=== PATIENT | female | born 1985 | race Two or more races ===

== ENCOUNTER 2017-06-16 01:20 | Emergency (ER) | payer MEDICAID, OTHER ==
[~2017-06-16] VITALS: Ht 162.6 cm; Wt 65.3 kg
[2017-06-16 02:04] LABS: Basophils # (auto) 0.1 uL; Eosinophils # (auto) 0.1 uL; Eosinophils % (auto) 0.9 % (0.0-7.0); Hematocrit 37.9 % (36.0-46.0); Hemoglobin 12.8 g/dL (12.2-16.2); Lymphocytes # (auto) 1.9 uL; Lymphocytes % (auto) 20.9 % (10.0-50.0); Mean Corpuscular Hemoglobin 30.7 pg (28.0-32.0); Mean Corpuscular Hgb Conc. 33.9 g/dL (32.0-36.0); Mean Corpuscular Volume 90.7 fL (80.0-100.0); Monocytes # (auto) 0.6 uL; Monocytes % (auto) 7.2 % (0.0-12.0); Neutrophils # (auto) 6.2 uL; Platelet Count (auto) 168 10^3/uL (140-450); Red Blood Cells 4.18 10^6/uL (4.0-5.20); Red Cell Distribution Width 13.2 % (11.8-14.3); White Blood Cell 8.9 10^3/uL (4.4-10.8)
[2017-06-16 02:10] LABS: Urine Amorphous Crystal FEW /hpf (None Seen); Urine Bacteria FEW /hpf (None Seen); Urine Blood Negative /uL (Negative); Urine Specific Gravity 1.016 (1.001-1.035); Urine WBC 1 /hpf (0 - 5)
[2017-06-16 02:45] LABS: Albumin 3.4 g/dL (3.4-5.0); Calcium 9.1 mg/dL (8.5-10.1); Potassium 4.3 mmol/L (3.5-5.1)
[2017-06-16 02:48] LABS: BUN/Creatinine Ratio 15.2
[2017-06-16 02:51] LABS: Bilirubin, Total 0.3 mg/dL (0.2-1.0); Total Protein 7.4 g/dL (6.4-8.2)
[2017-06-16 06:43] VITALS: BP 125/80
[2017-06-16] MEDS ORDERED: ACETAMINOPHEN 325 MG TAB PO ONE (07:00)
[2017-06-16] MEDS ORDERED: ONDANSETRON ODT 4 MG TAB PO ONE (07:30)
== END 2017-06-16 08:28 | disposition home or self-care (01) ==
LOC: ER 01:20
DX: O26.891 Other specified pregnancy related conditions, first trimester (principal); O21.9 Vomiting of pregnancy, unspecified; R10.31 Right lower quadrant pain; Z3A.11 11 weeks gestation of pregnancy
CPT/HCPCS: 36415; 76801; 80053; 81001; 84702; 85025; 99285; Q0162

== ENCOUNTER → 2017-06-26 | Outpatient (CLI) | payer MEDICAID ==
[2017-06-26 11:54] LABS: Basophils # (auto) 0.1 uL; Basophils % (auto) 0.8 % (0.0-2.0); Eosinophils # (auto) 0 uL; Eosinophils % (auto) 0.6 % (0.0-7.0); Hematocrit 39.7 % (36.0-46.0); Hemoglobin 13.3 g/dL (12.2-16.2); Lymphocytes # (auto) 1.4 uL; Lymphocytes % (auto) 19.8 % (10.0-50.0); Mean Corpuscular Hemoglobin 30.7 pg (28.0-32.0); Mean Corpuscular Hgb Conc. 33.5 g/dL (32.0-36.0); Mean Corpuscular Volume 91.7 fL (80.0-100.0); Monocytes # (auto) 0.4 uL; Neutrophils % (auto) 72.8 % (37.0-80.0); Nucleated Red Blood Cells % 0.1 %; Platelet Count (auto) 176 10^3/uL (140-450); Red Blood Cells 4.33 10^6/uL (4.0-5.20); Red Cell Distribution Width 13.2 % (11.8-14.3); White Blood Cell 6.9 10^3/uL (4.4-10.8)
[2017-06-26 13:04] LABS: Alcohol, Urine < 3.0 mg/dL (0-5); Amphetamine Screen, Urine NEGATIVE (NEGATIVE); Barbiturate Scree,Urine NEGATIVE (NEGATIVE); Benzodiazephine Screen, Urine NEGATIVE (NEGATIVE); Cannabinoid Screen, Urine NEGATIVE (NEGATIVE); Cocaine Screen, Urine NEGATIVE (NEGATIVE); Opiate Scree,Urine NEGATIVE (NEGATIVE); Phencyclidine Screen, Urine NEGATIVE (NEGATIVE)
[2017-06-27 04:08] LABS: RPR Non Reactive (Non Reactive)
== END | disposition home or self-care (01) ==
LOC: LAB 11:22
PROVIDERS: ATTEND Specialist
DX: Z34.82 Encounter for supervision of other normal pregnancy, second trimester (principal); Z3A.14 14 weeks gestation of pregnancy
CPT/HCPCS: 36415; 80307; 81220; 83036; 85025; 86592; 86703; 86762; 86850; 86900; 86901; 87086; 87340

== ENCOUNTER → 2017-09-29 | Outpatient (CLI) | payer MEDICAID ==
[2017-09-29 10:53] LABS: Basophils # (auto) 0.1 uL; Basophils % (auto) 0.8 % (0.0-2.0); Eosinophils # (auto) 0.1 uL; Eosinophils % (auto) 0.9 % (0.0-7.0); Hematocrit 34.8 % (36.0-46.0); Lymphocytes # (auto) 1.6 uL; Lymphocytes % (auto) 20.6 % (10.0-50.0); Mean Corpuscular Hemoglobin 31.8 pg (28.0-32.0); Mean Corpuscular Hgb Conc. 34.5 g/dL (32.0-36.0); Mean Corpuscular Volume 92.2 fL (80.0-100.0); Monocytes # (auto) 0.6 uL; Monocytes % (auto) 8.1 % (0.0-12.0); Neutrophils # (auto) 5.3 uL; Neutrophils % (auto) 69.6 % (37.0-80.0); Red Blood Cells 3.78 10^6/uL (4.0-5.20); Red Cell Distribution Width 13.1 % (11.8-14.3); White Blood Cell 7.6 10^3/uL (4.4-10.8)
[2017-09-29 10:57] LABS: Platelet Count (auto) 133 10^3/uL (140-450)
== END | disposition home or self-care (01) ==
LOC: LAB 10:36
PROVIDERS: ATTEND Specialist
DX: O99.810 Abnormal glucose complicating pregnancy (principal); Z3A.22 22 weeks gestation of pregnancy
CPT/HCPCS: 36415; 82951; 85025

== ENCOUNTER → 2017-12-06 | Outpatient (CLI) | payer MEDICAID ==
[~2017-12-06] MED LIST: PREN-96 PO
[2017-12-06 10:54] LABS: Basophils # (auto) 0 uL; Basophils % (auto) 0.6 % (0.0-2.0); Eosinophils # (auto) 0.1 uL; Eosinophils % (auto) 0.9 % (0.0-7.0); Hematocrit 37.5 % (36.0-46.0); Hemoglobin 12.5 g/dL (12.2-16.2); Lymphocytes # (auto) 1.2 uL; Mean Corpuscular Hemoglobin 30.1 pg (28.0-32.0); Mean Corpuscular Hgb Conc. 33.2 g/dL (32.0-36.0); Mean Corpuscular Volume 90.7 fL (80.0-100.0); Monocytes # (auto) 0.5 uL; Monocytes % (auto) 7.9 % (0.0-12.0); Neutrophils # (auto) 4.5 uL; Neutrophils % (auto) 71.6 % (37.0-80.0); Platelet Count (auto) 141 10^3/uL (140-450); Red Blood Cells 4.14 10^6/uL (4.0-5.20); Red Cell Distribution Width 13.9 % (11.8-14.3); White Blood Cell 6.3 10^3/uL (4.4-10.8)
== END | disposition home or self-care (01) ==
LOC: LAB 10:18
PROVIDERS: ATTEND Specialist
DX: Z11.3 Encounter for screening for infections with a predominantly sexual mode of transmission (principal)
CPT/HCPCS: 36415; 85025

== ENCOUNTER 2017-12-07 08:10 | Observation (INO) | payer MEDICAID ==
[2017-12-07] MEDS ORDERED: PREN-96 PO (09:20)
== END 2017-12-07 09:15 | disposition home or self-care (01) | DRG 566 ==
LOC: LDRP 08:10
PROVIDERS: ADMIT Specialist; ATTEND Specialist
DX: O62.9 Abnormality of forces of labor, unspecified (principal); O60.03 Preterm labor without delivery, third trimester; Z87.891 Personal history of nicotine dependence; Z3A.35 35 weeks gestation of pregnancy
CPT/HCPCS: 59025; 81002; G0378

== ENCOUNTER 2017-12-11 09:40 | Observation (INO) | payer MEDICAID ==
[2017-12-11] MEDS: TERBUTALINE SULFATE 1 MG/ML 1ML VIAL SC SCH ×2 (11:13→11:44)
== END 2017-12-11 12:20 | disposition home or self-care (01) | DRG 563 ==
LOC: LDRP 09:40
PROVIDERS: ADMIT Obstetrics & Gynecology; ATTEND Obstetrics & Gynecology
DX: O60.03 Preterm labor without delivery, third trimester (principal); Z3A.36 36 weeks gestation of pregnancy; Z87.891 Personal history of nicotine dependence
CPT/HCPCS: 59025; 81002; 96372; G0378; J3105

== ENCOUNTER 2017-12-18 09:35 | Observation (INO) | payer MEDICAID | END 2017-12-18 10:50 | disposition home or self-care (01) | DRG 563 | LOC: LDRP 09:35 | PROVIDERS: ADMIT Specialist; ATTEND Specialist | DX: O60.03 Preterm labor without delivery, third trimester (principal); Z3A.37 37 weeks gestation of pregnancy | CPT/HCPCS: 59025; 81002; G0378 ==

== ENCOUNTER 2017-12-25 09:25 | Inpatient (IN) | payer MEDICAID ==
[2017-12-25] VITALS (9 sets, daily range): BP systolic 100–115; BP diastolic 41–71
[~2017-12-25] VITALS: Ht 166 cm; Wt 75.3 kg
[2017-12-25] MEDS: TERBUTALINE SULFATE 1 MG/ML 1ML VIAL SC SCH (10:35)
[2017-12-25 10:53] LABS: Basophils # (auto) 0 uL; Basophils % (auto) 0.4 % (0.0-2.0); Eosinophils # (auto) 0 uL; Eosinophils % (auto) 0.5 % (0.0-7.0); Hematocrit 38.9 % (36.0-46.0); Hemoglobin 12.8 g/dL (12.2-16.2); Lymphocytes # (auto) 1.2 uL; Lymphocytes % (auto) 15.4 % (10.0-50.0); Mean Corpuscular Hemoglobin 29.8 pg (28.0-32.0); Mean Corpuscular Hgb Conc. 32.8 g/dL (32.0-36.0); Monocytes # (auto) 0.5 uL; Neutrophils # (auto) 6.2 uL; Neutrophils % (auto) 77.7 % (37.0-80.0); Platelet Count (auto) 130 10^3/uL (140-450); Red Blood Cells 4.28 10^6/uL (4.0-5.20); Red Cell Distribution Width 14.7 % (11.8-14.3)
[2017-12-25 11:05] LABS: Urine Bacteria FEW /hpf (None Seen); Urine Blood Negative /uL (Negative); Urine Specific Gravity 1.015 (1.001-1.035); Urine WBC 1 /hpf (0 - 5)
[2017-12-25 11:15] LABS: INR 0.87 (0.9-1.15); Partial Thromboplastin Time 27.9 sec (23.78-33.04); Prothrombin Time 9.4 sec (9.27-12.13)
[2017-12-25 11:18] LABS: Albumin 2.7 g/dL (3.4-5.0); BUN/Creatinine Ratio 17.6; Bilirubin, Total 0.5 mg/dL (0.2-1.0); Calcium 8.1 mg/dL (8.5-10.1); Potassium 3.8 mmol/L (3.5-5.1); Total Protein 7.2 g/dL (6.4-8.2)
[2017-12-25] MEDS ORDERED: TETRACAINE 1% INJ 2 ML VIAL IJ ONE (12:12)
[2017-12-25] MEDS ORDERED: MORPHINE SULF(PF) 0.5MG/ML 10ML VIAL ONE (12:17)
[2017-12-25] MEDS ORDERED: OXYTOCIN 10 UNIT/ML 10ML VIAL ONE (12:28)
[2017-12-25] MEDS ORDERED: ceFAZolin 1GM VL ONE (12:30)
[2017-12-25] MEDS ORDERED: MIDAZOLAM HCL 1MG/1ML-2 ML VIAL ONE (13:01)
[2017-12-25] MEDS ORDERED: NALOXONE HCL 0.4 MG/ML VIAL IV PRN (13:15)
[2017-12-25] MEDS ORDERED: METOCLOPRAMIDE HCL 5MG/ml INJ 2ml VIAL IV ONE (13:15)
[2017-12-25] MEDS ORDERED: ONDANSETRON HCL 4 MG/2 ML VIAL IV ONE (13:15)
[2017-12-25] MEDS ORDERED: KETOROLAC TROMETH 30 MG/ML 1ML VIAL IV PRN (13:15)
[2017-12-25] MEDS ORDERED: ONDANSETRON HCL 4 MG/2 ML VIAL IV PRN ×2 (13:15→13:45)
[2017-12-25] MEDS ORDERED: diphenhdrAMINE HCL 50 MG/1 ML VL IV PRN (13:15)
[2017-12-25] MEDS ORDERED: HYDROmorphone HCL 2 MG/ML VL IV PRN (13:15)
[2017-12-25] MEDS ORDERED: MORPHINE SULFATE 4 MG/ML SYR/VIAL IV PRN (13:45)
[2017-12-25] MEDS: LACTATED RINGER'S 1,000 ML IV SCH ×2 (15:53→23:43)
[2017-12-25] MEDS: KETOROLAC TROMETH 30 MG/ML 1ML VIAL IV SCH ×2 (18:23→23:43)
[2017-12-25] MEDS: ceFAZolin 1GM/50ML 50 ML IV SCH (19:37)
[2017-12-26] VITALS (8 sets, daily range): BP systolic 93–111; BP diastolic 41–62
[2017-12-26] MEDS: TERBUTALINE SULFATE 1 MG/ML 1ML VIAL SC SCH (02:28)
[2017-12-26] MEDS: ceFAZolin 1GM/50ML 50 ML IV SCH ×2 (03:35→11:42)
[2017-12-26] MEDS ORDERED: BISACODYL 10 MG RECT SUPP PR PRN (05:15)
[2017-12-26] MEDS: KETOROLAC TROMETH 30 MG/ML 1ML VIAL IV SCH (05:27)
[2017-12-26] MEDS: SIMETHICONE 80 MG CHEWABLE TABLET PO SCH ×4 (05:31→21:39)
[2017-12-26 06:06] LABS: RPR Non Reactive (Non Reactive)
[2017-12-26 07:16] LABS: Basophils # (auto) 0 uL; Basophils % (auto) 0.5 % (0.0-2.0); Eosinophils # (auto) 0.1 uL; Eosinophils % (auto) 0.9 % (0.0-7.0); Hemoglobin 11.5 g/dL (12.2-16.2); Lymphocytes % (auto) 12.3 % (10.0-50.0); Mean Corpuscular Hemoglobin 30.9 pg (28.0-32.0); Mean Corpuscular Volume 90.9 fL (80.0-100.0); Monocytes # (auto) 0.5 uL; Monocytes % (auto) 6.3 % (0.0-12.0); Neutrophils # (auto) 6.2 uL; Nucleated Red Blood Cells % 0.1 %; Platelet Count (auto) 116 10^3/uL (140-450); Red Blood Cells 3.74 10^6/uL (4.0-5.20); Red Cell Distribution Width 14.7 % (11.8-14.3); White Blood Cell 7.8 10^3/uL (4.4-10.8)
[2017-12-26] MEDS ORDERED: HYDROcodone-ACET 5/325MG TAB PO PRN (09:30)
[2017-12-26] MEDS: HYDROcodone-ACET 5/325MG TAB PO PRN ×2 (09:40→21:47)
[2017-12-26] MEDS: DOCUSATE SOD 100 MG CAP PO SCH ×2 (09:40→21:39)
[2017-12-26] MEDS: IBUPROFEN 800 MG TAB PO PRN ×2 (14:51→21:05)
[2017-12-27 03:00] VITALS: BP 108/54
[2017-12-27] MEDS: HYDROcodone-ACET 5/325MG TAB PO PRN ×3 (03:58→22:45)
[2017-12-27] MEDS: IBUPROFEN 800 MG TAB PO PRN ×2 (05:00→18:03)
[2017-12-27] MEDS: SIMETHICONE 80 MG CHEWABLE TABLET PO SCH ×3 (06:38→22:45)
[2017-12-27 06:40] VITALS: BP 86/60
[2017-12-27] MEDS: DOCUSATE SOD 100 MG CAP PO SCH (10:00)
[2017-12-27 11:00] VITALS: BP 101/58
[2017-12-27 14:40] VITALS: BP 93/50
[2017-12-27 19:00] VITALS: BP 113/68
[2017-12-27 22:52] VITALS: BP 116/54
[2017-12-28 02:57] VITALS: BP 95/55
[2017-12-28] MEDS: IBUPROFEN 800 MG TAB PO PRN (06:00)
[2017-12-28] MEDS: SIMETHICONE 80 MG CHEWABLE TABLET PO SCH (06:01)
[2017-12-28 06:40] VITALS: BP 105/57
[2017-12-28] MEDS: DOCUSATE SOD 100 MG CAP PO SCH (09:48)
== END 2017-12-28 10:30 | disposition home or self-care (01) | DRG 540 ==
LOC: OBSVTOIN 09:25 → LDRP 09:25
PROVIDERS: ADMIT Obstetrics & Gynecology; ATTEND Obstetrics & Gynecology
PROC: 0UL70CZ Occlusion of Bilateral Fallopian Tubes with Extraluminal Device, Open Approach (ICD-10-PCS; 2017-12-25)
PROC: 10D00Z1 Extraction of Products of Conception, Low, Open Approach (ICD-10-PCS; principal; 2017-12-25 12:07)
DX: O34.211 Maternal care for low transverse scar from previous cesarean delivery (principal); O69.81X0 Labor and delivery complicated by cord around neck, without compression, not applicable or unspecified; O77.0 Labor and delivery complicated by meconium in amniotic fluid; Z37.0 Single live birth; Z30.2 Encounter for sterilization; Z3A.38 38 weeks gestation of pregnancy
CPT/HCPCS: 36415; 51702; 59025; 80053; 81001; 81002; 85025; 85610; 85730; 86592; 86850; 86900; 86901; 96365; 96366; 96372; 96374; 96375; J0690; J1885; J2250; J2405; J2590

== ENCOUNTER 2023-08-03 09:55 | Emergency (ER) | payer MEDICAID ==
[~2023-08-03] VITALS: Ht 167.6 cm; Wt 78.6 kg
[2023-08-03 11:04] VITALS: BP 130/90; PULSE 98; RESP 16; TEMP 98.9; O2SAT 98
[2023-08-03] MEDS ORDERED: AMOX875T3 PO (11:20)
[2023-08-03] MEDS ORDERED: IBUP-1456 PO (11:20)
== END 2023-08-03 11:24 | disposition home or self-care (01) ==
LOC: ER 09:55
DX: J03.90 Acute tonsillitis, unspecified (principal); H66.91 Otitis media, unspecified, right ear

== ENCOUNTER 2023-08-11 08:23 | Emergency (ER) | payer MEDICAID ==
[~2023-08-11] VITALS: Ht 165.1 cm; Wt 77.9 kg
[~2023-08-11 08:23] MED LIST changes: +AMOX875T3 PO; +IBUP-1456 PO
[2023-08-11 09:24] VITALS: BP 116/64; PULSE 73; RESP 18; TEMP 97.6; O2SAT 97
[2023-08-11] MEDS ORDERED: PROM1SOL4 PO (09:56)
[2023-08-11] MEDS ORDERED: PRED20TA2 PO (09:56)
== END 2023-08-11 10:09 | disposition home or self-care (01) ==
LOC: ER 08:23
DX: J20.9 Acute bronchitis, unspecified (principal); F41.9 Anxiety disorder, unspecified
CPT/HCPCS: 71045

== ENCOUNTER 2023-08-21 07:54 | Emergency (ER) | payer MEDICAID ==
[~2023-08-21] VITALS: Ht 165.1 cm; Wt 77.7 kg
[~2023-08-21 07:54] MED LIST changes: +PRED20TA2 PO; +PROM1SOL4 PO
[2023-08-21 09:23] VITALS: BP 122/87; PULSE 88; RESP 18; TEMP 98.1; O2SAT 98
[2023-08-21 09:35] LABS: Basophils # (auto) 0.1 10 ^3/uL (0-0.2); Basophils % (auto) 0.8 % (0.0-2.0); Eosinophils # (auto) 0.1 10 ^3/uL (0-0.8); Eosinophils % (auto) 0.6 % (0.0-7.0); Hemoglobin 14.2 g/dL (12.2-16.2); Lymphocytes # (auto) 1.5 10 ^3/uL (0.4-5.4); Lymphocytes % (auto) 15.2 % (10.0-50.0); Mean Corpuscular Hemoglobin 30.2 pg (28.0-32.0); Mean Corpuscular Hgb Conc. 33.8 g/dL (32.0-36.0); Mean Corpuscular Volume 89.3 fL (80.0-100.0); Monocytes # (auto) 0.8 10 ^3/uL (0-1.3); Monocytes % (auto) 7.9 % (0.0-12.0); Neutrophils # (auto) 7.6 10 ^3/uL (1.6-8.6); Neutrophils % (auto) 75.5 % (37.0-80.0); Red Blood Cells 4.71 10^6/uL (4.0-5.20); Red Cell Distribution Width 12.7 % (11.8-14.3)
[2023-08-21 10:14] LABS: Anion Gap 7 (5-15); Carbon Dioxide 24 mmol/L (20-30); Chloride 106 mmol/L (98-107); Potassium 3.9 mmol/L (3.5-5.1); Sodium 137 mmol/L (136-145)
[2023-08-21 10:15] LABS: Calcium 9.3 mg/dL (8.5-10.1)
[2023-08-21 10:19] LABS: Glucose 109 mg/dL (74-106)
[2023-08-21 10:20] LABS: Blood Urea Nitrogen 8 mg/dL (9-23)
[2023-08-21] MEDS ORDERED: PROM1SOL4 PO (10:41)
== END 2023-08-21 10:47 | disposition home or self-care (01) ==
LOC: ER 07:54
DX: J20.9 Acute bronchitis, unspecified (principal); R09.1 Pleurisy; B34.9 Viral infection, unspecified
CPT/HCPCS: 36415; 80048; 84484; 85025

== ENCOUNTER 2023-11-11 15:29 | Emergency (ER) | payer MEDICAID ==
[~2023-11-11] VITALS: Ht 165.1 cm; Wt 77.4 kg
[2023-11-11 16:09] VITALS: BP 121/78; PULSE 78; RESP 16; TEMP 98.4; O2SAT 96
[2023-11-11] MEDS ORDERED: CEPH500C PO (17:01)
[2023-11-11] MEDS ORDERED: IBUP-1454 PO (17:01)
[2023-11-11] MEDS: IBUPROFEN 800 MG TAB PO ONE (17:27)
== END 2023-11-11 17:27 | disposition home or self-care (01) ==
LOC: ER 15:29
DX: S00.83XA Contusion of other part of head, initial encounter (principal); S00.31XA Abrasion of nose, initial encounter; Z79.899 Other long term (current) drug therapy; W01.0XXA Fall on same level from slipping, tripping and stumbling without subsequent striking against object, initial encounter; Y93.89 Activity, other specified; Y92.89 Other specified places as the place of occurrence of the external cause; Y99.8 Other external cause status
CPT/HCPCS: 70450; 70486

== ENCOUNTER 2024-09-14 16:35 | Emergency (ER) | payer MEDICAID ==
[~2024-09-14] VITALS: Ht 165.1 cm; Wt 74.5 kg
[~2024-09-14 16:35] MED LIST changes: +CEPH500C PO; +IBUP-1454 PO
[2024-09-14 17:00] VITALS: BP 135/81; PULSE 100; RESP 16; TEMP 98.7; O2SAT 98
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
== END 2024-09-14 18:06 | disposition left against medical advice (07) ==
LOC: ER 16:35
DX: T76.21XA Adult sexual abuse, suspected, initial encounter (principal); N93.9 Abnormal uterine and vaginal bleeding, unspecified; F41.9 Anxiety disorder, unspecified; F17.210 Nicotine dependence, cigarettes, uncomplicated; Y04.8XXA Assault by other bodily force, initial encounter; Y93.89 Activity, other specified; Y92.89 Other specified places as the place of occurrence of the external cause; Y99.8 Other external cause status

== ENCOUNTER 2024-09-15 11:34 | Emergency (ER) | payer MEDICAID ==
[~2024-09-15] VITALS: Ht 162.6 cm; Wt 71.8 kg
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
[2024-09-15 12:18] LABS: Basophils # (auto) 0.1 10 ^3/uL (0-0.2); Basophils % (auto) 1.1 % (0.0-2.0); Eosinophils # (auto) 0 10 ^3/uL (0-0.8); Eosinophils % (auto) 0.5 % (0.0-7.0); Hematocrit 41.5 % (36.0-46.0); Hemoglobin 14.1 g/dL (12.2-16.2); Lymphocytes # (auto) 1.2 10 ^3/uL (0.4-5.4); Lymphocytes % (auto) 25.5 % (10.0-50.0); Mean Corpuscular Hemoglobin 31.1 pg (28.0-32.0); Mean Corpuscular Volume 91.6 fL (80.0-100.0); Monocytes # (auto) 0.3 10 ^3/uL (0-1.3); Neutrophils # (auto) 3.1 10 ^3/uL (1.6-8.6); Neutrophils % (auto) 65.9 % (37.0-80.0); Nucleated Red Blood Cells % 0.1 %; Platelet Count (auto) 159 10^3/uL (140-450); Red Blood Cells 4.53 10^6/uL (4.0-5.20); Red Cell Distribution Width 13.3 % (11.8-14.3); White Blood Cell 4.7 10^3/uL (4.4-10.8)
[2024-09-15 12:27] LABS: Potassium 4.1 mmol/L (3.5-5.1); Sodium 142 mmol/L (136-145)
[2024-09-15 12:28] LABS: Anion Gap 11 (5-15); Calcium 9.3 mg/dL (8.7-10.4); Carbon Dioxide 21 mmol/L (20-31)
[2024-09-15 12:29] LABS: Chloride 110 mmol/L (98-107)
[2024-09-15 12:33] LABS: Blood Urea Nitrogen 9 mg/dL (9-23); Glucose 104 mg/dL (74-106)
[2024-09-15 12:39] VITALS: BP 131/81; PULSE 73; RESP 16; TEMP 98.7; O2SAT 94
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
== END 2024-09-15 14:16 | disposition left against medical advice (07) ==
LOC: ER 11:44
DX: T76.21XA Adult sexual abuse, suspected, initial encounter (principal); N93.9 Abnormal uterine and vaginal bleeding, unspecified; F17.210 Nicotine dependence, cigarettes, uncomplicated; F41.9 Anxiety disorder, unspecified
CPT/HCPCS: 36415; 74176; 80048; 81025; 85025

== ENCOUNTER 2024-11-19 05:18 | Emergency (ER) | payer MEDICAID, OTHER ==
[~2024-11-19] VITALS: Ht 165.1 cm; Wt 75.5 kg
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
--- NOTE | 2024-11-19 07:11 | DVH ---
INDICATION: Pain TECHNIQUE: 3 views of the cervical spine were obtained. COMPARISON: None FINDINGS: The cervical spine is visualized from C1-C7. There is loss of the normal cervical lordosis which can be positional. No fractures or subluxations are identified. Alignment appears unremarkable. Prevertebral soft tissues are within normal limits. IMPRESSION: 1. No evidence for fracture or subluxation.
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
[2024-11-19 07:44] VITALS: BP 117/68; PULSE 86; RESP 14; TEMP 98.6; O2SAT 96
== END 2024-11-19 07:49 | disposition home or self-care (01) ==
LOC: ER 05:18
DX: S09.90XA Unspecified injury of head, initial encounter (principal); M79.18 Myalgia, other site; V89.2XXA Person injured in unspecified motor-vehicle accident, traffic, initial encounter; Y93.89 Activity, other specified; Y92.410 Unspecified street and highway as the place of occurrence of the external cause; Y99.8 Other external cause status
CPT/HCPCS: 70450; 70480; 71101; 72040